=== PATIENT | female | born 1960 | race Hispanic/Latino ===

== ENCOUNTER 2017-05-22 09:15 | Emergency (ER) | payer OTHER ==
[2017-05-22 09:15] VITALS: BMI 29.2
[2017-05-22 09:27] VITALS: BP 134/72; PULSE 66; RESP 16; TEMP 98.3; O2SAT 98
--- NOTE | 2017-05-22 11:19 | RAD ---
PROCEDURE: Radiographs of the left humerus. HISTORY: Fall COMPARISON: None. FINDINGS: BONES: Bone alignment and mineralization are normal. There is no acute displaced fracture or destruction. SOFT TISSUES: Normal. OTHER FINDINGS: None. IMPRESSION: No acute displaced fracture or dislocation.
--- NOTE | 2017-05-22 11:24 | RAD ---
PROCEDURE: Left Hand Radiographs. HISTORY: fall COMPARISON: None. FINDINGS: BONES: Normal. No fracture. JOINTS: Normal. No osteoarthritic changes. SOFT TISSUES: Normal. OTHER FINDINGS: None. IMPRESSION: Normal left hand radiographs.
--- NOTE | 2017-05-22 11:33 | RAD ---
PROCEDURE: Left Wrist Radiographs. HISTORY: wrist pain COMPARISON: None. FINDINGS: BONES: Bone alignment and mineralization are normal. There is no acute displaced fracture or bone destruction. JOINTS: The proximal and distal carpal rows are maintained. The joint spaces are preserved. SOFT TISSUES: Normal. OTHER FINDINGS: None. IMPRESSION: No acute fracture or dislocation.
--- NOTE | 2017-05-22 11:54 | ED PDOC ---
Arrival/HPI - General Chief Complaint: Trauma Time Seen by Provider: 05/22/17 09:24 Historian: Patient - History of Present Illness Narrative History of Present Illness (Text): 05/22/17 14:03 56-year-old female presents today with left hand wrist and upper arm pain status post fall. Patient states she was walking slipped and fell landing on the left side. She denies hitting her head. Denies chest pain or shortness of breath. Denies dizziness or weakness. Denies headache or blurred vision. Patient describes a achy pain on the left arm. Denies numbness weakness or tingling in the extremities. No medications have been taken for pain. Patient denies neck or back pain. No abdominal pain. No other complaints Time/Duration: Prior to Arrival Symptom Onset: Sudden Symptom Course: Improving Past Medical History - Provider Review Nursing Documentation Reviewed: Yes - Travel History Have you recently traveled outside [place] w/in the past 3 mons?: No - Infectious Disease Hx of Infectious Diseases: None - Tetanus Immunization Tetanus Immunization: Unknown - Reproductive Menopause: Yes - Past Medical History Past Medical History: No Previous - Psychiatric Hx Depression: No Hx Emotional Abuse: No Hx Physical Abuse: No Hx Substance Use: No - Surgical History Hx Section: Yes - Anesthesia Hx Anesthesia: Yes Hx Anesthesia Reactions: No - Suicidal Assessment Feels Threatened In Home Enviroment: No Family/Social History - Physician Review Nursing Documentation Reviewed: Yes Family/Social History: Unknown Family HX Smoking Status: Former Smoker Hx Alcohol Use: Yes Hx Substance Use: No Hx Substance Use Treatment: No Allergies/Home Meds Allergies/Adverse Reactions: Allergies No Known Allergies Allergy (Verified 05/22/17 09:21) Review of Systems - Review of Systems Constitutional: absent: Fatigue, Fevers Respiratory: absent: SOB, Cough Cardiovascular: absent: Chest Pain, Palpitations Gastrointestinal: absent: Abdominal Pain, Nausea, Vomiting Genitourinary Female: absent: Dysuria Musculoskeletal: Arthralgias. absent: Back Pain Skin: absent: Rash, Pruritis Neurological: absent: Headache, Dizziness Psychiatric: absent: Anxiety, Depression Physical Exam Vital Signs Reviewed: Yes Vital Signs Temp Pulse Resp BP Pulse Ox 05/22/17 09:26 98.3 F 66 16 134/72 98 Temperature: Afebrile Blood Pressure: Normal Pulse: Regular Respiratory Rate: Normal Appearance: Positive for: Well-Appearing, Non-Toxic, Comfortable Pain Distress: None Mental Status: Positive for: Alert and Oriented X 3 - Systems Exam Head: Present: Atraumatic Mouth: Present: Moist Mucous Membranes Neck: Present: Normal Range of Motion, Trachea Midline. No: MIDLINE TENDERNESS , Paraspinal Tenderness Respiratory/Chest: Present: Clear to Auscultation, Good Air Exchange. No: Respiratory Distress, Accessory Muscle Use Cardiovascular: Present: Regular Rate and Rhythm, Normal S1, S2. No: Murmurs Back: Present: Normal Inspection. No: Midline Tenderness, Paraspinal Tenderness Upper Extremity: Present: Normal ROM, NORMAL PULSES, Tenderness (left arm; + ttp over dorsal aspect of hand and left wrist. no edema, no erythema; no ecchymosis; full rom of hand and wrist, sensation and distal pulses intact; cap refill <2. no elbow tenderness; full rom of elbow; + ttp over humerus; full rom of shoulder; no clavicular tenderness. ), Neurovascularly Intact, Capillary Refill < 2s. No: Swelling, Erythema, Deformity Neurological: Present: GCS=15, Speech Normal Skin: Present: Warm, Dry, Normal Color. No: Rashes Psychiatric: Present: Alert, Oriented x 3 Medical Decision Making ED Course and Treatment: 05/22/17 14:07 Patient nontoxic well-appearing in no distress with stable vital signs X-rays of the left hand: No fracture X-ray of the left wrist: No fracture X-ray of the left humerus: No fracture Toradol IM Patient placed in Velcro volar splint i advised the patient that although the xrays show no fracture; there is still a possibility for ligamentous or tendon injury the patient must see the orthopedist for further evaluation. I discussed all results with patient advised to followup with the orthopedist for the next 2 days. Return if symptoms worsen persist or new symptoms develop all aspects of this case were discussed the attending of record. Impression: Hand pain, wrist pain, fall Motrin every 6 hours as needed for pain Use the wrist splint Follow-up with primary care physician within the next 2 days Follow-up with the orthopedist within the next 2 days Return if symptoms worsen persist or if new symptoms develop: Headaches, dizziness, weakness or if any other concerning symptoms develop - RAD Interpretation Radiology Orders: 05/22/17 09:33 HAND LEFT 3 VIEWS ROUTINE [RAD] Stat HUMERUS LEFT [RAD] Stat WRIST, LEFT 3 VIEWS [RAD] Stat - Medication Orders Current Medication Orders: Discontinued Medications Ketorolac Tromethamine (Toradol) 60 mg IM STAT STA Stop: 05/22/17 10:44 Last Admin: 05/22/17 10:48 Dose: Disposition/Present on Arrival - Present on Arrival Any Indicators Present on Arrival: No History of DVT/PE: No History of Uncontrolled Diabetes: No Urinary Catheter: No History of Decub. Ulcer: No History Surgical Site Infection Following: None - Disposition Have Diagnosis and Disposition been Completed?: Yes Diagnosis: Fall, Wrist pain Disposition: HOME/ ROUTINE Disposition Time: 11:49 Patient Plan: Discharge Condition: GOOD Discharge Instructions (ExitCare): Wrist Injury (ED) Additional Instructions: Motrin every 6 hours as needed for pain Use the wrist splint Follow-up with primary care physician within the next 2 days Follow-up with the orthopedist within the next 2 days Return if symptoms worsen persist or if new symptoms develop: Headaches, dizziness, weakness or if any other concerning symptoms develop Prescriptions: Ibuprofen [Motrin] 600 mg PO Q6H PRN #20 tab PRN Reason: pain/fever reduction Referrals: [facility] [place]Outside] - Follow up with primary [facility] [Outside] - Follow up with primary [facility] [place] [Outside] - Follow up with primary Arnaldo Whitley DO [Staff Provider] - Follow up with primary Praful Russell MD [Staff Provider] - Follow up with primary Forms: [employer] (Serbian), WORK NOTE
== END 2017-05-22 12:00 | disposition home or self-care (01) ==
LOC: ED 09:15
DX: M25.532 Pain in left wrist (principal); W01.0XXA Fall on same level from slipping, tripping and stumbling without subsequent striking against object, initial encounter